=== PATIENT | male | born 1965 | race Asian ===

== ENCOUNTER 2017-03-25 11:52 | Emergency (ER) | payer SELFPAY ==
[~2017-03-25] VITALS: Ht 172.7 cm; Wt 77.1 kg
[2017-03-25 12:10] VITALS: BP 173/89
[2017-03-25 12:26] VITALS: BP 173/89
--- NOTE | 2017-03-25 14:34 | Emergency Room Report ---
History of Present Illness General Chief Complaint: General Complaint Source: Patient Present Illness HPI Patient presents emergency department today complaining of depression and bizarre behavior. Patient was reported to be at times violent around the house and although he is not suicidal or homicidal. Patient denies any fever nausea vomiting diarrhea chills. Patient is stable. Apparently he also has delusions. Patient at nighttime apparently returns of and with his shirt ruffled and the family's concern that he might be involved in something. Patient denies any drug use. No other complaints are noted.No other modifying factors. No other associated signs and symptoms. No other complaints were noted. Allergies: Coded Allergies: No Known Allergies (Unverified , 03/25/17) Patient History Past Medical History: none Past Surgical History: none Pertinent Family History: none Social History: Denies: alcohol use, drug use, smoking Reviewed Nursing Documentation: PMH: Agreed, PSxH: Agreed Nursing Documentation-PM Past Medical History: No Stated History Review of Systems All Other Systems: negative except mentioned in HPI Physical Exam Vital Signs Date Time Temp Pulse Resp B/P Pulse Ox O2 Delivery O2 Flow Rate FiO2 03/25/17 12:07 97.9 103 18 173/89 100 Room Air Sp02 EP Interpretation: reviewed, normal General Appearance: normal inspection, well appearing, no apparent distress, alert Head: atraumatic Eyes: bilateral eye normal inspection ENT: normal ENT inspection, hearing grossly normal, normal voice Neck: normal inspection, full range of motion, supple, no bony tend Respiratory: normal inspection, lungs clear, normal breath sounds, no respiratory distress, no retraction, no wheezing Cardiovascular #1: regular rate, rhythm, no edema Gastrointestinal: normal inspection, normal bowel sounds, non tender, soft, no guarding, no hernia Genitourinary: no CVA tenderness Musculoskeletal: normal inspection, back normal, normal range of motion Neurologic: normal inspection, alert, responsive, speech normal Psychiatric: judgement/insight normal, mood/affect normal, no suicidal/ homicidal ideation Skin: normal inspection, normal color, no rash Medical Decision Making Diagnostic Impression: Primary Impression: Psychosis Qualified Codes: F22 - Delusional disorders ER Course Patient presents emergency department today with bizarre behavior. Differential considerations include acute psychosis, worsening schizophrenia, suicidal ideation, drug abuse just to name a few. Patient's exam is benign. Patient is not suicidal or homicidal. Patient is here with his family who can guarantee for safety. Family will take the patient to [facility] for further evaluation. Patient is stable for discharge. Patient is also medically cleared.Patient is advised to follow up with primary doctor in addition to [facility] and return the emergency room for any worsening symptoms and as needed. Last Vital Signs Date Time Temp Pulse Resp B/P Pulse Ox O2 Delivery O2 Flow Rate FiO2 03/25/17 12:26 97.9 18 173/89 100 Room Air 03/25/17 12:07 103 Status: improved Disposition: HOME, SELF-CARE Condition: Stable Referrals: NOT CHOSEN IPA/,REFERRING (PCP) Patient Instructions: Schizophrenia VINNIE NEVAREZ M.D. Mar 25, 2017 14:34
== END 2017-03-25 12:30 | disposition home or self-care (01) ==
LOC: EMR 12:30
DX: F29 Unspecified psychosis not due to a substance or known physiological condition (principal); F32.9 Major depressive disorder, single episode, unspecified
CPT/HCPCS: 99282